=== PATIENT | male | born 1960 | race Caucasian/White ===

== ENCOUNTER 2017-10-13 07:18 | Day surgery (SDC) | payer BC ==
[~2017-10-13 07:18] MED LIST: Lactated Ringers 1,000 ML IV SCH; Sodium Chloride 0.9% 10 ML Syringe FLUSH PRN
[2017-10-13] MEDS ORDERED: Propofol 200 MG/20 ML SDV IV ONE (08:30)
[2017-10-13] MEDS ORDERED: fentaNYL 100 MCG/2 ML SDV IV ONE (08:30)
[2017-10-13] MEDS ORDERED: Midazolam 1 MG/ML 2 ML SDV IV ONE (08:30)
--- NOTE | 2017-10-13 09:14 | PCM.OPNOTE ---
- General Post-Op/Procedure Note Date of Surgery/Procedure: 10/13/17 Operative Procedure(s): egd with bx. c scope with bx Findings: esophagitis paraesophageal hernia internal hemorrhoids descending colon polyp Pre Op Diagnosis: epigastrit abd pain. hematochezia Post-Op Diagnosis: esophagitis. paraesophageal hernia. internal hemorrhoids. descending colon polyp Anesthesia Technique: MAC Primary Surgeon: Adolfo Medina Anesthesia Provider: Sony Delacruz Pathology: esophagus descending colon polyp Complications: None Condition: Good Free Text/Narrative:: see dictation
--- NOTE | 2017-10-13 13:45 | OR ---
DATE OF OPERATION: 10/13/2017 SURGEON: Adolfo Medina MD PROCEDURE PERFORMED: Upper endoscopy with cold forceps biopsy and colonoscopy with cold forceps biopsy. PREOPERATIVE DIAGNOSIS: Epigastric abdominal pain and hematochezia. POSTOPERATIVE DIAGNOSIS: Esophagitis, paraesophageal hernia and descending colon polyp, internal polyps. INDICATIONS FOR PROCEDURE: This is a 57-year-old white male, who is referred with a history of epigastric abdominal discomfort. In addition, he relates some hematochezia. He was offered and accepted both an upper endoscopy and a colonoscopy. DESCRIPTION OF PROCEDURE: After an excellent IV sedation was administered, the bite block was inserted. The flexible endoscope was passed without difficulty down the patient's esophagus into the stomach. The following findings were noted: Ability to pass the endoscope into the duodenum was not possible. This was because a portion of the stomach appeared to be in the chest. We were able to pass the tube through the diaphragmatic opening and see the remainder of the stomach, but because of the sharp angle involved to get through the pylorus, we were unable to do so. There was no evidence of gangrene or necrosis noted. The patient does not appear to be obstructed. Withdrawing the scope to the GE junction, which measured at 35 cm, there was evidence of esophagitis and biopsies were taken. The remainder of the esophageal exam was unremarkable. The stomach was deflated and the scope was removed. Our attention was then turned to the patient's colon. Digital rectal exam was performed. No marked abnormality was noted. Flexible colonoscope was inserted and advanced to the cecum without difficulty. The prep was excellent. The following findings were noted: Ascending colon, unremarkable. Transverse colon, unremarkable. Descending colon demonstrates a small polypoid lesion, biopsied with cold biopsy forceps and sent for permanent. Sigmoid and rectum, unremarkable. There was evidence of internal hemorrhoids, which appeared to be the reason why the patient has had some hematochezia. The colon was deflated, scope was removed, and the patient tolerated the procedure well, and was taken to recovery room in good condition. /[id number] /MODL
== END 2017-10-13 10:45 | disposition home or self-care (01) ==
LOC: FB.SDS 07:18
PROVIDERS: ATTEND Surgery
DX: K63.5 Polyp of colon (principal); K21.0 Gastro-esophageal reflux disease with esophagitis; K64.8 Other hemorrhoids; Z79.899 Other long term (current) drug therapy
CPT/HCPCS: 43239; 45380; 88305; 88313; J2250; J2704; J3010; J7120

== ENCOUNTER 2017-11-05 08:13 | Inpatient (IN) | payer BC ==
[2017-11-05] MEDS ORDERED: ceFAZolin 1 GM Vial IV ONE (09:30)
[2017-11-05] MEDS ORDERED: ceFAZolin 1 GM in Sodium Chloride 0.9% 50 ML IV ONE (09:30)
[2017-11-05] MEDS: Lactated Ringers 1,000 ML IV SCH ×3 (09:32→20:00)
[2017-11-05] MEDS ORDERED: Lidocaine 1% with EPINEPHrine 1:100,000 20 ML MDV INJECT ONE (10:33)
[2017-11-05] MEDS ORDERED: Bupivacaine 0.5% 30 ML SDV INJECT ONE (10:33)
--- NOTE | 2017-11-05 13:18 | PCM.OPNOTE ---
- General Post-Op/Procedure Note Date of Surgery/Procedure: 11/05/17 Operative Procedure(s): lap paraesophageal hernia repair with mesh. Greg fundoplication Findings: type 3 paraesophageal hernia. reduced with 4 cm of esophagus, ge junction in the abdomen Pre Op Diagnosis: paraesophageal hernia Post-Op Diagnosis: type 3 paraesophageal hernia. Anesthesia Technique: MAC Primary Surgeon: Adolfo Medina Anesthesia Provider: Ros Sow Pathology: hernia sac Complications: None Condition: Good Free Text/Narrative:: see dictation
[2017-11-05] MEDS: Metoclopramide 10 MG/2 ML SDV IVPUSH SCH ×2 (14:09→21:22)
[2017-11-05] MEDS: Pantoprazole 40 MG Vial IVPUSH SCH (14:12)
[2017-11-05] MEDS: HYDROmorphone 2 MG/ML SDV IVPUSH PRN (15:36)
[2017-11-05] MEDS: Acetaminophen 1,000 MG in Premix Bag 1 BAG IV SCH ×2 (17:05→23:25)
[2017-11-05] MEDS ORDERED: Ondansetron 4 MG/2 ML SDV IVPUSH PRN (18:00)
--- NOTE | 2017-11-05 18:10 | PCM.SN ---
- Free Text/Narrative Note: good pain control no sig issues. lungs cta heart rrr abd soft nontender unremarkable post op exam
--- NOTE | 2017-11-05 20:25 | OR ---
DATE OF OPERATION: 11/05/2017 SURGEON: Adolfo Medina MD PREOPERATIVE DIAGNOSIS: Paraesophageal hernia. POSTOPERATIVE DIAGNOSIS: Type 3 paraesophageal hernia. PROCEDURE PERFORMED: Laparoscopic paraesophageal hernia repair with mesh and Dami fundoplication. INDICATIONS FOR PROCEDURE: This is a 57-year-old white male, who is referred with a history of complaints of early satiety and vomiting. Subsequent workup has revealed a paraesophageal hernia. He was offered and accepted repair of same. DESCRIPTION OF OPERATION: After an excellent general anesthetic was administered, a Krishna catheter was placed. The patient was prepped and draped in the usual sterile manner. We began the case by injecting the area just below the umbilicus with a 1:1 mixture of 1% lidocaine with epinephrine 0.5% bupivacaine. A total of 5 mL was used. A small vertical midline incision was carried out and the midline fascia was exposed. Two stay sutures of 0 Vicryl were placed on either side of midline fascia, which was then incised. A 10.5 mm Claudia trocar was then inserted into the patient's abdominal cavity and the patient's abdomen was then insufflated to 50 mmHg pressure using carbon dioxide. A total of four more ports were placed at this point, one in the right upper quadrant at the proximal level of the midclavicular or the anterior axillary line, two in the epigastrium on either side of the midline, and one in the left upper quadrant approximate level of the midclavicular line. The liver retractor was then inserted and clamped into position. The stomach was grasped and reduced. We started the case by using the LigaSure and started taking down the short gastrics. This allowed our dissection to be carried up to the left asuncion and the plane was developed along the left asuncion anterior using the LigaSure. Grasping the hernia sac, we were then able to carefully using a combination of LigaSure and blunt dissection, dissect the hernia sac free from the mediastinum and reduced that into the intraabdominal cavity circulating around approximately group home across the midline of the anterior portion of the asuncion. We then took down the gastrohepatic ligament again using a LigaSure and mobilized the hernia sac of the right side again dissecting it free and reducing it completely. The excess hernia sac was then excised and passed off the field. Our plane was developed posteriorly taking down more adhesions and using gentle blunt dissection. The esophagus was mobilized and brought into the intraabdominal portion. A 1-inch Martha drain was then wrapped around the hernia sac and kept into position with a LigaSure. This allowed us to retract the stomach out of the way and proceed with our closure with a 2-0 Ethibond on a canoe needle. A total of 3 stitches were placed through both asuncion without difficulty and the knots were tied extracorporeally. The 3rd knot was tied after inserting and inflating a bougie, which was dilated up to 56-Tamazight. We then took off some additional fat from around the GE junction. The GE junction measured approximately 4 cm into the intraabdominal cavity. We were able to grasp the posterior aspect of the stomach and bring around the fundus to perform a Dami fundoplication and again the stomach was quite lax and remained in position using the shoe-shine technique. Two sutures were placed, one involving the fundus, esophagus, and stomach superiorly and one inferiorly just below the GE junction again using the 3-0 Ethibond suture. The Chiqui was removed at the start of the fundoplication. The balloon dilator was removed after completing our fundoplication and a nice loose wrap was noted again with the GE junction noted to be very nicely in the intraabdominal position as well. It should be noted that the crural repair was reinforced with a Phasix ST mesh. This was an [id number] an expiration date of 02/28/2015, reference #[id number] and this was the 3 x 4 size. A horseshoe shape was cut into the mesh along its long axis approximately 3 cm and this portion of the repair was done prior to our fundoplication with the barrier portion of the mesh marked and after soaking the mesh delivered through the umbilical port and brought back to the crural itself where the mesh was placed over the repair with two tails coming superiorly. These were tacked into position with the Stat Tacker. A total of 5 were used to keep it into position. The excess mesh on the tail was excised leaving a horseshoe shape to the mesh and was noted this was done between the fundoplication at the end of closing our crura. The pneumoperitoneum was released after assuring our wrap was quite loose. The periumbilical suture was closed with [id number] 0 Vicryl. The 2 stay sutures were tied to each other. The skin was closed with soha. Needle, sponge, and instrument counts were reported as correct. The patient was taken to recovery room in good condition having tolerated the procedure well. Krishna catheter was removed in the recovery room. /[id number] /MODL
[2017-11-06] MEDS: Lactated Ringers 1,000 ML IV SCH (04:20)
[2017-11-06] MEDS: Acetaminophen 1,000 MG in Premix Bag 1 BAG IV SCH ×2 (04:23→11:40)
[2017-11-06] MEDS: Metoclopramide 10 MG/2 ML SDV IVPUSH SCH ×2 (04:57→13:51)
[2017-11-06] MEDS: Pantoprazole 40 MG Vial IVPUSH SCH (09:14)
[2017-11-06] MEDS: HYDROmorphone 2 MG/ML SDV IVPUSH PRN (09:14)
[2017-11-06] MEDS ORDERED: traMADol 50 MG Tab PO PRN (09:43)
--- NOTE | 2017-11-06 09:46 | PCM.SURGPN ---
- General Info Date of Service: 11/06/17 POD#: 1 Functional Status: Reports: Pain Controlled, Ambulating, Urinating, Incentive Spirometry - Review of Systems Pulmonary: Reports: No Symptoms Cardiovascular: Reports: No Symptoms Gastrointestinal: Reports: Abdominal Pain - Patient Data Vitals - Most Recent: Last Vital Signs Temp 36.9 C 11/06/17 07:48 Pulse 60 11/06/17 07:48 Resp 17 11/06/17 07:48 BP 119/66 11/06/17 07:48 Pulse Ox 98 11/06/17 07:48 Weight - Most Recent: 72.575 kg I&O - Last 24 Hours: Intake & Output 11/05/17 11/06/17 11/06/17 22:59 06:59 14:59 Intake Total 1028 1175 Output Total 0 400 125 Balance 1028 775 -125 Lab Results Last 24 Hrs: Laboratory Results - last 24 hr 11/06/17 Range/Units 06:25 WBC 10.2 (4.5-12.0) X10-3/uL RBC 4.49 (4.30-5.75) x10(6)uL Hgb 12.4 (11.5-15.5) g/dL Hct 37.0 (30.0-51.3) % MCV 82.5 (80-96) fL MCH 27.7 (27.7-33.6) pg MCHC 33.6 (32.2-35.4) g/dL RDW 13.6 (11.5-15.5) % Plt Count 277 (125-369) X10(3)uL MPV 9.1 (7.4-10.4) fL Neut % (Auto) 81.6 (46-82) % Lymph % (Auto) 9.2 L (13-37) % [place]ham % (Auto) 8.8 (4-12) % Eos % (Auto) 0 L (1.0-5.0) % Baso % (Auto) 0 (0-2) % Neut # (Auto) 8.4 H (1.6-8.3) # Lymph # (Auto) 0.9 (0.6-5.0) # [place]ham # (Auto) 0.9 (0.0-1.3) # Eos # (Auto) 0.0 (0.0-0.8) # Baso # (Auto) 0.0 (0.0-0.2) # Med Orders - Current: Current Medications Hydromorphone HCl (Dilaudid) 1 mg IVPUSH Q2H PRN PRN Reason: Pain (moderate 4-6) Last Admin: 11/06/17 09:14 Dose: 1 mg Lactated Ringer's (Ringers, Lactated) 1,000 mls @ 125 mls/hr IV ASDIRECTED [facility] Last Admin: 11/06/17 04:20 Dose: 125 mls/hr Acetaminophen 1,000 mg/ Premix 100 mls @ 400 mls/hr IV Q6H [facility] Stop: 11/06/17 11:14 Last Admin: 11/06/17 04:23 Dose: 400 mls/hr Metoclopramide HCl (Reglan) 5 mg IVPUSH Q8H [facility] Last Admin: 11/06/17 04:57 Dose: 5 mg Ondansetron HCl (Zofran) 4 mg IVPUSH Q6H PRN PRN Reason: Nausea/Vomiting Last Admin: 11/05/17 17:26 Dose: 4 mg Pantoprazole Sodium (Protonix Iv) 40 mg IVPUSH DAILY [facility] Last Admin: 11/06/17 09:14 Dose: 40 mg Sodium Chloride (Saline Flush) 10 ml FLUSH ASDIRECTED PRN PRN Reason: Keep Vein Open Discontinued Medications Bupivacaine HCl (Marcaine 0.5%) 10 ml INJECT .STK-MED ONE Stop: 11/05/17 10:34 Last Admin: 11/05/17 10:33 Dose: 10 ml Cefazolin Sodium (Ancef) 1 gm IV ONETIME ONE Stop: 11/05/17 09:31 Last Admin: 11/05/17 09:50 Dose: 1 gm Lidocaine/Epinephrine (Xylocaine 1% With Epinephrine 1:100,000) 10 ml INJECT .STK-MED ONE Stop: 11/05/17 10:34 Last Admin: 11/05/17 10:33 Dose: 10 ml - Exam Wound/Incisions: Dressing Dry and Intact General: Alert, Oriented, No Acute Distress Lungs: Clear to Auscultation, Normal Respiratory Effort Cardiovascular: Regular Rate, Regular Rhythm GI/Abdominal Exam: Normal Bowel Sounds, Soft, Non-Tender - Problem List & Annotations (1) Paraesophageal hernia SNOMED Code(s): 0091113 Code(s): K44.9 - DIAPHRAGMATIC HERNIA WITHOUT OBSTRUCTION OR GANGRENE Status: Acute Current Visit: No - Problem List Review Problem List Initiated/Reviewed/Updated: Yes - My Orders Last 24 Hours: Active Orders 24 hr Category Date Time Status Ambulate [RC] 08,12,16,20,00,04 Care 11/05/17 13:18 Active Communication Order [RC] ROUTINE Care 11/06/17 09:44 Ordered Insert Urinary Catheter [OM.PC] Q24H Care 11/06/17 01:00 Ordered Intake and Output [RC] 06,14,22 Care 11/05/17 13:18 Active Notify Provider Intake and Out [RC] PRN Care 11/05/17 13:19 Active Notify Provider Vital Signs [RC] PRN Care 11/05/17 13:19 Active Oxygen Therapy [RC] PRN Care 11/05/17 13:18 Active RT Incentive Spirometry [RC] Q2HWA Care 11/05/17 13:18 Active Vital Signs [RC] 04,08,12,16,20,00 Care 11/05/17 13:18 Active Respiratory Care Assess and Treatment [CONS] Routine Cons 11/05/17 13:18 Active Clear Liquid Diet [DIET] Diet 11/06/17 Lunch Ordered Acetaminophen [Ofirmev] 1,000 mg Med 11/05/17 17:00 Active Premix Bag 1 bag IV Q6H HYDROmorphone [Dilaudid] Med 11/05/17 13:18 Active 1 mg IVPUSH Q2H PRN Metoclopramide [Reglan] Med 11/05/17 13:30 Active 5 mg IVPUSH Q8H Ondansetron [Zofran] Med 11/05/17 18:00 Active 4 mg IVPUSH Q6H PRN Pantoprazole [ProTONIX IV] Med 11/05/17 13:30 Active 40 mg IVPUSH DAILY traMADol [Ultram] Med 11/06/17 09:43 Ordered 100 mg PO Q6H PRN Medication Orders Hydromorphone HCl (Dilaudid) 1 mg IVPUSH Q2H PRN PRN Reason: Pain (moderate 4-6) Last Admin: 11/06/17 09:14 Dose: 1 mg Admin: 11/05/17 15:36 Dose: 1 mg Lactated Ringer's (Ringers, Lactated) 1,000 mls @ 125 mls/hr IV ASDIRECTED [facility] Last Admin: 11/06/17 04:20 Dose: 125 mls/hr Infusion: 11/06/17 04:00 Dose: 125 mls/hr Admin: 11/05/17 20:00 Dose: 125 mls/hr Infusion: 11/05/17 19:55 Dose: 125 mls/hr Admin: 11/05/17 13:42 Dose: 125 mls/hr Infusion: 11/05/17 13:42 Dose: 125 mls/hr Admin: 11/05/17 09:32 Dose: 125 mls/hr Acetaminophen 1,000 mg/ Premix 100 mls @ 400 mls/hr IV Q6H [facility] Stop: 11/06/17 11:14 Last Admin: 11/06/17 04:23 Dose: 400 mls/hr Infusion: 11/05/17 23:40 Dose: 400 mls/hr Admin: 11/05/17 23:25 Dose: 400 mls/hr Infusion: 11/05/17 17:20 Dose: 400 mls/hr Admin: 11/05/17 17:05 Dose: 400 mls/hr Metoclopramide HCl (Reglan) 5 mg IVPUSH Q8H [facility] Last Admin: 11/06/17 04:57 Dose: 5 mg Admin: 11/05/17 21:22 Dose: 5 mg Admin: 11/05/17 14:09 Dose: 5 mg Ondansetron HCl (Zofran) 4 mg IVPUSH Q6H PRN PRN Reason: Nausea/Vomiting Last Admin: 11/05/17 17:26 Dose: 4 mg Pantoprazole Sodium (Protonix Iv) 40 mg IVPUSH DAILY [facility] Last Admin: 11/06/17 09:14 Dose: 40 mg Admin: 11/05/17 14:12 Dose: 40 mg Sodium Chloride (Saline Flush) 10 ml FLUSH ASDIRECTED PRN PRN Reason: Keep Vein Open - Assessment Assessment (Free Text/Narrative):: doing well today - Plan Plan (Free Text/Narrative):: clear liquid diet po pain medication
[2017-11-06] MEDS ORDERED: Dexamethasone 4 MG/ML 5 ML MDV IVPUSH ONE (10:00)
[2017-11-06] MEDS ORDERED: Lactated Ringers 1,000 ML IV ONE (10:00)
[2017-11-06] MEDS ORDERED: Neostigmine Methylsulfate 10 MG/10 ML MDV IVPUSH ONE (10:00)
[2017-11-06] MEDS ORDERED: Ondansetron 4 MG/2 ML SDV IVPUSH ONE (10:00)
[2017-11-06] MEDS ORDERED: HYDROmorphone 2 MG/ML SDV IV ONE (10:00)
[2017-11-06] MEDS ORDERED: fentaNYL 100 MCG/2 ML SDV IV ONE (10:00)
[2017-11-06] MEDS ORDERED: Glycopyrrolate 0.2 MG/ML 5 ML MDV IV ONE (10:00)
[2017-11-06] MEDS ORDERED: Ketorolac 30 MG/ML SDV IVPUSH ONE (10:00)
[2017-11-06] MEDS ORDERED: Succinylcholine 200 MG/10 ML MDV IV ONE (10:00)
[2017-11-06] MEDS ORDERED: Rocuronium 100 MG/10 ML MDV IV ONE (10:00)
[2017-11-06] MEDS ORDERED: Sodium Chloride 0.9% 500 ML IV ONE (10:00)
[2017-11-06] MEDS ORDERED: Lidocaine 2% 100 MG/5 ML Syringe IVPUSH ONE (10:00)
[2017-11-06] MEDS ORDERED: Propofol 200 MG/20 ML SDV IV ONE (10:00)
[2017-11-06] MEDS: Sodium Chloride 0.9% 10 ML Syringe FLUSH PRN (13:52)
[2017-11-06] MEDS: traMADol 50 MG Tab PO PRN ×2 (17:52→22:04)
[2017-11-07] MEDS: Sodium Chloride 0.9% 10 ML Syringe FLUSH PRN ×2 (00:03→05:22)
[2017-11-07] MEDS: Metoclopramide 10 MG/2 ML SDV IVPUSH SCH ×3 (00:05→19:07)
[2017-11-07] MEDS: traMADol 50 MG Tab PO PRN (03:40)
[2017-11-07] MEDS ORDERED: Enoxaparin 40 MG/0.4 ML Syringe SUBCUT SCH (09:00)
[2017-11-07] MEDS ORDERED: Bisacodyl 5 MG Tab PO ONE (09:05)
--- NOTE | 2017-11-07 09:09 | PCM.SURGPN ---
- General Info Date of Service: 11/07/17 POD#: 2 - Review of Systems Gastrointestinal: Reports: Other (distention ). Denies: Flatus - Patient Data Vitals - Most Recent: Last Vital Signs Temp 36.5 C 11/07/17 03:40 Pulse 71 11/07/17 03:40 Resp 18 11/07/17 03:40 BP 129/87 11/07/17 03:40 Pulse Ox 94 L 11/07/17 03:40 Weight - Most Recent: 72.575 kg I&O - Last 24 Hours: Intake & Output 11/06/17 11/07/17 11/07/17 22:59 06:59 14:59 Intake Total 775 200 Output Total 600 250 Balance 175 -50 Med Orders - Current: Current Medications Bisacodyl (Dulcolax) 10 mg PO ONETIME ONE Stop: 11/07/17 09:06 Hydromorphone HCl (Dilaudid) 1 mg IVPUSH Q2H PRN PRN Reason: Pain (moderate 4-6) Last Admin: 11/06/17 09:14 Dose: 1 mg Potassium Chloride/Dextrose/Sod Cl (D5 1/2 Ns W/ 20 Meq/L Kcl) 1,000 mls @ 125 mls/hr IV ASDIRECTED [facility] Metoclopramide HCl (Reglan) 10 mg IVPUSH Q8H [facility] Ondansetron HCl (Zofran) 4 mg IVPUSH Q6H PRN PRN Reason: Nausea/Vomiting Last Admin: 11/05/17 17:26 Dose: 4 mg Pantoprazole Sodium (Protonix Iv) 40 mg IVPUSH DAILY [facility] Last Admin: 11/06/17 09:14 Dose: 40 mg Sodium Chloride (Saline Flush) 10 ml FLUSH ASDIRECTED PRN PRN Reason: Keep Vein Open Last Admin: 11/07/17 05:22 Dose: 10 ml Tramadol HCl (Ultram) 100 mg PO Q4H PRN PRN Reason: Pain Last Admin: 11/07/17 03:40 Dose: 100 mg Discontinued Medications Bupivacaine HCl (Marcaine 0.5%) 10 ml INJECT .STK-MED ONE Stop: 11/05/17 10:34 Last Admin: 11/05/17 10:33 Dose: 10 ml Cefazolin Sodium (Ancef) 1 gm IV ONETIME ONE Stop: 11/05/17 09:31 Last Admin: 11/05/17 09:50 Dose: 1 gm Lactated Ringer's (Ringers, Lactated) 1,000 mls @ 125 mls/hr IV ASDIRECTED [facility] Last Admin: 11/06/17 04:20 Dose: 125 mls/hr Acetaminophen 1,000 mg/ Premix 100 mls @ 400 mls/hr IV Q6H [facility] Stop: 11/06/17 11:14 Last Admin: 11/06/17 11:40 Dose: 400 mls/hr Lidocaine/Epinephrine (Xylocaine 1% With Epinephrine 1:100,000) 10 ml INJECT .STK-MED ONE Stop: 11/05/17 10:34 Last Admin: 11/05/17 10:33 Dose: 10 ml Metoclopramide HCl (Reglan) 5 mg IVPUSH Q8H [facility] Last Admin: 11/07/17 05:21 Dose: 5 mg Tramadol HCl (Ultram) 100 mg PO Q6H PRN PRN Reason: Pain Last Admin: 11/06/17 13:51 Dose: 100 mg - Exam Wound/Incisions: Healing Well Lungs: Clear to Auscultation, Normal Respiratory Effort Cardiovascular: Regular Rate, Regular Rhythm GI/Abdominal Exam: Normal Bowel Sounds, Distended Skin: Warm, Dry, Intact - Problem List & Annotations (1) Paraesophageal hernia SNOMED Code(s): 8357962 Code(s): K44.9 - DIAPHRAGMATIC HERNIA WITHOUT OBSTRUCTION OR GANGRENE Status: Acute Current Visit: No - Problem List Review Problem List Initiated/Reviewed/Updated: Yes - My Orders Last 24 Hours: Active Orders 24 hr Category Date Time Status Communication Order [RC] ROUTINE Care 11/06/17 09:44 Active Krishna Catheter Insertion [Insert Urinary Catheter] [OM. Care 11/06/17 11:15 Ordered PC] Q24H Urinary Catheter Assessment [RC] 08,16,00 Care 11/06/17 11:13 Active BASIC METABOLIC PANEL,BMP [CHEM] Routine Lab 11/07/17 09:06 Ordered Bisacodyl [Dulcolax] Med 11/07/17 09:05 Once 10 mg PO ONETIME ONE Dextrose 5%-1/2 Normal Saline with KCl 20 mEq @ 125 mL/ Med 11/07/17 09:15 Ordered Hr (1000 mL) D5 1/2 NS w/ 20 mEq/L KCl 1,000 ml IV ASDIRECTED Metoclopramide [Reglan] Med 11/07/17 09:06 Ordered 10 mg IVPUSH Q8H traMADol [Ultram] Med 11/06/17 17:39 Active 100 mg PO Q4H PRN Medication Orders Bisacodyl (Dulcolax) 10 mg PO ONETIME ONE Stop: 11/07/17 09:06 Hydromorphone HCl (Dilaudid) 1 mg IVPUSH Q2H PRN PRN Reason: Pain (moderate 4-6) Last Admin: 11/06/17 09:14 Dose: 1 mg Admin: 11/05/17 15:36 Dose: 1 mg Potassium Chloride/Dextrose/Sod Cl (D5 1/2 Ns W/ 20 Meq/L Kcl) 1,000 mls @ 125 mls/hr IV ASDIRECTED [facility] Metoclopramide HCl (Reglan) 10 mg IVPUSH Q8H [facility] Ondansetron HCl (Zofran) 4 mg IVPUSH Q6H PRN PRN Reason: Nausea/Vomiting Last Admin: 11/05/17 17:26 Dose: 4 mg Pantoprazole Sodium (Protonix Iv) 40 mg IVPUSH DAILY [facility] Last Admin: 11/06/17 09:14 Dose: 40 mg Admin: 11/05/17 14:12 Dose: 40 mg Sodium Chloride (Saline Flush) 10 ml FLUSH ASDIRECTED PRN PRN Reason: Keep Vein Open Last Admin: 11/07/17 05:22 Dose: 10 ml Admin: 11/07/17 00:03 Dose: 10 ml Admin: 11/06/17 13:52 Dose: 10 ml Tramadol HCl (Ultram) 100 mg PO Q4H PRN PRN Reason: Pain Last Admin: 11/07/17 03:40 Dose: 100 mg Admin: 11/06/17 22:04 Dose: 100 mg Admin: 11/06/17 17:52 Dose: 100 mg - Assessment Assessment (Free Text/Narrative):: appears to have delayed gastric emptying - Plan Plan (Free Text/Narrative):: npo continue reglan at higher dose dulcolax suppository.
[2017-11-07] MEDS: D5 1/2 NS w/ 20 mEq/L KCl 1,000 ML IV SCH ×2 (09:46→19:07)
[2017-11-07] MEDS: Pantoprazole 40 MG Vial IVPUSH SCH (09:51)
[2017-11-07] MEDS: Ketorolac 30 MG/ML SDV IVPUSH PRN ×2 (10:12→17:01)
[2017-11-07] MEDS ORDERED: Metoclopramide 10 MG/2 ML SDV IVPUSH SCH (11:00)
[2017-11-07] MEDS ORDERED: Ketorolac 30 MG/ML SDV ONE (16:37)
[2017-11-07] MEDS ORDERED: HYDROmorphone 2 MG/ML SDV IVPUSH PRN (17:05)
[2017-11-07] MEDS ORDERED: Ondansetron 4 MG/2 ML SDV IVPUSH PRN (17:06)
[2017-11-08] MEDS: Ketorolac 30 MG/ML SDV IVPUSH PRN ×3 (00:33→15:37)
[2017-11-08] MEDS: Metoclopramide 10 MG/2 ML SDV IVPUSH SCH ×3 (03:50→19:00)
[2017-11-08] MEDS: D5 1/2 NS w/ 20 mEq/L KCl 1,000 ML IV SCH ×2 (08:31→21:53)
--- NOTE | 2017-11-08 08:48 | PCM.SURGPN ---
- General Info Date of Service: 11/08/17 POD#: 3 Functional Status: Reports: Ambulating, Urinating - Review of Systems HEENT: Reports: Sore Throat (from NGT ) Pulmonary: Reports: No Symptoms Cardiovascular: Reports: No Symptoms Gastrointestinal: Reports: Flatus, Other (abd distention is down). Denies: Abdominal Pain - Patient Data Vitals - Most Recent: Last Vital Signs Temp 36.7 C 11/08/17 03:54 Pulse 70 11/08/17 03:54 Resp 16 11/08/17 03:54 BP 155/95 H 11/08/17 03:54 Pulse Ox 95 11/08/17 03:54 Weight - Most Recent: 72.575 kg I&O - Last 24 Hours: Intake & Output 11/07/17 11/08/17 11/08/17 22:59 06:59 14:59 Intake Total 775 575 Output Total 800 1550 Balance -25 -975 Lab Results Last 24 Hrs: Laboratory Results - last 24 hr 11/07/17 Range/Units 09:15 Sodium 139 (135-145) mmol/L Potassium 3.8 (3.5-5.3) mmol/L Chloride 103 (100-110) mmol/L Carbon Dioxide 29 (21-32) mmol/L BUN 12 (7-18) mg/dL Creatinine 1.1 (0.70-1.30) mg/dL Est Cr Clr Drug Dosing 73.49 mL/min Estimated GFR (MDRD) > 60 (>60) BUN/Creatinine Ratio 10.9 (9-20) Glucose 96 (80-116) mg/dL Calcium 8.7 (8.6-10.2) mg/dL Med Orders - Current: Current Medications Enoxaparin Sodium (Lovenox) 40 mg SUBCUT DAILY [facility] Hydromorphone HCl (Dilaudid) 1 mg IVPUSH Q2H PRN PRN Reason: Pain (moderate 4-6) Potassium Chloride/Dextrose/Sod Cl (D5 1/2 Ns W/ 20 Meq/L Kcl) 1,000 mls @ 75 mls/hr IV Q8H [facility] Last Admin: 11/08/17 08:31 Dose: 125 mls/hr Ketorolac Tromethamine (Toradol) 30 mg IVPUSH Q6H PRN PRN Reason: Pain Stop: 11/12/17 09:09 Last Admin: 11/08/17 00:33 Dose: 30 mg Metoclopramide HCl (Reglan) 10 mg IVPUSH Q8H [facility] Last Admin: 11/08/17 03:50 Dose: 10 mg Ondansetron HCl (Zofran) 4 mg IVPUSH Q6H PRN PRN Reason: Nausea/Vomiting Pantoprazole Sodium (Protonix Iv) 40 mg IVPUSH DAILY [facility] Sodium Chloride (Saline Flush) 10 ml FLUSH ASDIRECTED PRN PRN Reason: Keep Vein Open Last Admin: 11/07/17 05:22 Dose: 10 ml Discontinued Medications Bisacodyl (Dulcolax) 10 mg PO ONETIME ONE Stop: 11/07/17 09:06 Last Admin: 11/07/17 09:47 Dose: 10 mg Bupivacaine HCl (Marcaine 0.5%) 10 ml INJECT .STK-MED ONE Stop: 11/05/17 10:34 Last Admin: 11/05/17 10:33 Dose: 10 ml Cefazolin Sodium (Ancef) 1 gm IV ONETIME ONE Stop: 11/05/17 09:31 Last Admin: 11/05/17 09:50 Dose: 1 gm Enoxaparin Sodium (Lovenox) 40 mg SUBCUT DAILY [facility] Last Admin: 11/07/17 10:27 Dose: 40 mg Hydromorphone HCl (Dilaudid) 1 mg IVPUSH Q2H PRN PRN Reason: Pain (moderate 4-6) Last Admin: 11/06/17 09:14 Dose: 1 mg Lactated Ringer's (Ringers, Lactated) 1,000 mls @ 125 mls/hr IV ASDIRECTED [facility] Last Admin: 11/06/17 04:20 Dose: 125 mls/hr Acetaminophen 1,000 mg/ Premix 100 mls @ 400 mls/hr IV Q6H [facility] Stop: 11/06/17 11:14 Last Admin: 11/06/17 11:40 Dose: 400 mls/hr Ketorolac Tromethamine (Toradol) 30 mg IVPUSH Q6H PRN PRN Reason: Pain Stop: 11/12/17 09:09 Last Admin: 11/07/17 17:01 Dose: 30 mg Ketorolac Tromethamine (Toradol) Confirm Administered Dose 30 mg .ROUTE .STK- MED ONE Stop: 11/07/17 16:38 Last Admin: 11/07/17 18:11 Dose: Not Given Lidocaine/Epinephrine (Xylocaine 1% With Epinephrine 1:100,000) 10 ml INJECT .STK-MED ONE Stop: 11/05/17 10:34 Last Admin: 11/05/17 10:33 Dose: 10 ml Metoclopramide HCl (Reglan) 5 mg IVPUSH Q8H [facility] Last Admin: 11/07/17 05:21 Dose: 5 mg Metoclopramide HCl (Reglan) 10 mg IVPUSH Q8H [facility] Last Admin: 11/07/17 10:17 Dose: 10 mg Ondansetron HCl (Zofran) 4 mg IVPUSH Q6H PRN PRN Reason: Nausea/Vomiting Last Admin: 11/05/17 17:26 Dose: 4 mg Pantoprazole Sodium (Protonix Iv) 40 mg IVPUSH DAILY [facility] Last Admin: 11/07/17 09:51 Dose: 40 mg Tramadol HCl (Ultram) 100 mg PO Q6H PRN PRN Reason: Pain Last Admin: 11/06/17 13:51 Dose: 100 mg Tramadol HCl (Ultram) 100 mg PO Q4H PRN PRN Reason: Pain Last Admin: 11/07/17 03:40 Dose: 100 mg - Exam Wound/Incisions: Healing Well General: Alert, Oriented, No Acute Distress Lungs: Clear to Auscultation, Normal Respiratory Effort Cardiovascular: Regular Rate, Regular Rhythm GI/Abdominal Exam: Soft, Non-Tender, No Distention, Abnormal Bowel Sounds ( slightly decreased ) - Problem List & Annotations (1) Paraesophageal hernia SNOMED Code(s): 0523032 Code(s): K44.9 - DIAPHRAGMATIC HERNIA WITHOUT OBSTRUCTION OR GANGRENE Status: Acute Current Visit: No - Problem List Review Problem List Initiated/Reviewed/Updated: Yes - My Orders Last 24 Hours: Active Orders 24 hr Category Date Time Status DC Coultre Catheter [Urinary Catheter Removal] [RC] Per Care 11/08/17 08:44 Ordered Unit Routine NPO [Nothing Per Oral Diet] [DIET] Diet 11/08/17 Breakfast Active D5 1/2 NS w/ 20 mEq/L KCl 1,000 ml Med 11/07/17 09:15 Active IV Q8H Enoxaparin [Lovenox] Med 11/08/17 09:00 Active 40 mg SUBCUT DAILY HYDROmorphone [Dilaudid] Med 11/07/17 17:05 Active 1 mg IVPUSH Q2H PRN Ketorolac [Toradol] Med 11/07/17 22:00 Active 30 mg IVPUSH Q6H PRN Metoclopramide [Reglan] Med 11/07/17 19:00 Active 10 mg IVPUSH Q8H Ondansetron [Zofran] Med 11/07/17 17:06 Active 4 mg IVPUSH Q6H PRN Pantoprazole [ProTONIX IV] Med 11/08/17 09:00 Active 40 mg IVPUSH DAILY NG [Nasogastric Orogastric Tube Insertion] [OM.PC] Oth 11/07/17 15:30 Ordered Routine Medication Orders Enoxaparin Sodium (Lovenox) 40 mg SUBCUT DAILY [facility] Hydromorphone HCl (Dilaudid) 1 mg IVPUSH Q2H PRN PRN Reason: Pain (moderate 4-6) Potassium Chloride/Dextrose/Sod Cl (D5 1/2 Ns W/ 20 Meq/L Kcl) 1,000 mls @ 75 mls/hr IV Q8H [facility] Last Admin: 11/08/17 08:31 Dose: 125 mls/hr Infusion: 11/08/17 03:07 Dose: 125 mls/hr Admin: 11/07/17 19:07 Dose: 125 mls/hr Infusion: 11/07/17 17:46 Dose: 125 mls/hr Admin: 11/07/17 09:46 Dose: 125 mls/hr Ketorolac Tromethamine (Toradol) 30 mg IVPUSH Q6H PRN PRN Reason: Pain Stop: 11/12/17 09:09 Last Admin: 11/08/17 00:33 Dose: 30 mg Metoclopramide HCl (Reglan) 10 mg IVPUSH Q8H [facility] Last Admin: 11/08/17 03:50 Dose: 10 mg Admin: 11/07/17 19:07 Dose: 10 mg Ondansetron HCl (Zofran) 4 mg IVPUSH Q6H PRN PRN Reason: Nausea/Vomiting Pantoprazole Sodium (Protonix Iv) 40 mg IVPUSH DAILY [facility] Sodium Chloride (Saline Flush) 10 ml FLUSH ASDIRECTED PRN PRN Reason: Keep Vein Open Last Admin: 11/07/17 05:22 Dose: 10 ml Admin: 11/07/17 00:03 Dose: 10 ml Admin: 11/06/17 13:52 Dose: 10 ml - Assessment Assessment (Free Text/Narrative):: exam is better today mobilizing fluids with a good uo minimal NGT output with distention resolved. slightly hypoactive bowel sounds. - Plan Plan (Free Text/Narrative):: coulter out today. anticipate d/c of ngt later today. continue reglan
[2017-11-08] MEDS: Pantoprazole 40 MG Vial IVPUSH SCH (08:54)
[2017-11-08] MEDS: Enoxaparin 40 MG/0.4 ML Syringe SUBCUT SCH (08:56)
[2017-11-09] MEDS: Metoclopramide 10 MG/2 ML SDV IVPUSH SCH ×2 (03:20→13:12)
[2017-11-09] MEDS: Enoxaparin 40 MG/0.4 ML Syringe SUBCUT SCH (09:03)
[2017-11-09] MEDS: Pantoprazole 40 MG Vial IVPUSH SCH (09:03)
--- NOTE | 2017-11-09 09:42 | PCM.SURGPN ---
- General Info Date of Service: 11/09/17 POD#: 4 Functional Status: Reports: Urinating - Review of Systems Pulmonary: Reports: No Symptoms Cardiovascular: Reports: No Symptoms Gastrointestinal: Reports: No Symptoms, Flatus - Patient Data Vitals - Most Recent: Last Vital Signs Temp 36.8 C 11/09/17 04:00 Pulse 73 11/09/17 04:00 Resp 16 11/09/17 04:00 BP 150/90 H 11/09/17 04:00 Pulse Ox 97 11/09/17 04:00 Weight - Most Recent: 72.575 kg I&O - Last 24 Hours: Intake & Output 11/08/17 11/09/17 11/09/17 22:59 06:59 14:59 Intake Total 1236 584 Output Total 1350 900 Balance -114 -316 Med Orders - Current: Current Medications Enoxaparin Sodium (Lovenox) 40 mg SUBCUT DAILY [facility] Last Admin: 11/09/17 09:03 Dose: 40 mg Hydromorphone HCl (Dilaudid) 1 mg IVPUSH Q2H PRN PRN Reason: Pain (moderate 4-6) Potassium Chloride/Dextrose/Sod Cl (D5 1/2 Ns W/ 20 Meq/L Kcl) 1,000 mls @ 75 mls/hr IV Q8H [facility] Last Admin: 11/08/17 21:53 Dose: 125 mls/hr Ketorolac Tromethamine (Toradol) 30 mg IVPUSH Q6H PRN PRN Reason: Pain Stop: 11/12/17 09:09 Last Admin: 11/08/17 15:37 Dose: 30 mg Metoclopramide HCl (Reglan) 10 mg IVPUSH Q8H [facility] Last Admin: 11/09/17 03:20 Dose: 10 mg Ondansetron HCl (Zofran) 4 mg IVPUSH Q6H PRN PRN Reason: Nausea/Vomiting Pantoprazole Sodium (Protonix Iv) 40 mg IVPUSH DAILY [facility] Last Admin: 11/09/17 09:03 Dose: 40 mg Sodium Chloride (Saline Flush) 10 ml FLUSH ASDIRECTED PRN PRN Reason: Keep Vein Open Last Admin: 11/07/17 05:22 Dose: 10 ml Discontinued Medications Bisacodyl (Dulcolax) 10 mg PO ONETIME ONE Stop: 11/07/17 09:06 Last Admin: 11/07/17 09:47 Dose: 10 mg Bupivacaine HCl (Marcaine 0.5%) 10 ml INJECT .STK-MED ONE Stop: 11/05/17 10:34 Last Admin: 11/05/17 10:33 Dose: 10 ml Cefazolin Sodium (Ancef) 1 gm IV ONETIME ONE Stop: 11/05/17 09:31 Last Admin: 11/05/17 09:50 Dose: 1 gm Enoxaparin Sodium (Lovenox) 40 mg SUBCUT DAILY [facility] Last Admin: 11/07/17 10:27 Dose: 40 mg Hydromorphone HCl (Dilaudid) 1 mg IVPUSH Q2H PRN PRN Reason: Pain (moderate 4-6) Last Admin: 11/06/17 09:14 Dose: 1 mg Lactated Ringer's (Ringers, Lactated) 1,000 mls @ 125 mls/hr IV ASDIRECTED [facility] Last Admin: 11/06/17 04:20 Dose: 125 mls/hr Acetaminophen 1,000 mg/ Premix 100 mls @ 400 mls/hr IV Q6H [facility] Stop: 11/06/17 11:14 Last Admin: 11/06/17 11:40 Dose: 400 mls/hr Ketorolac Tromethamine (Toradol) 30 mg IVPUSH Q6H PRN PRN Reason: Pain Stop: 11/12/17 09:09 Last Admin: 11/07/17 17:01 Dose: 30 mg Ketorolac Tromethamine (Toradol) Confirm Administered Dose 30 mg .ROUTE .STK- MED ONE Stop: 11/07/17 16:38 Last Admin: 11/07/17 18:11 Dose: Not Given Lidocaine/Epinephrine (Xylocaine 1% With Epinephrine 1:100,000) 10 ml INJECT .STK-MED ONE Stop: 11/05/17 10:34 Last Admin: 11/05/17 10:33 Dose: 10 ml Metoclopramide HCl (Reglan) 5 mg IVPUSH Q8H [facility] Last Admin: 11/07/17 05:21 Dose: 5 mg Metoclopramide HCl (Reglan) 10 mg IVPUSH Q8H [facility] Last Admin: 11/07/17 10:17 Dose: 10 mg Ondansetron HCl (Zofran) 4 mg IVPUSH Q6H PRN PRN Reason: Nausea/Vomiting Last Admin: 11/05/17 17:26 Dose: 4 mg Pantoprazole Sodium (Protonix Iv) 40 mg IVPUSH DAILY [facility] Last Admin: 11/07/17 09:51 Dose: 40 mg Tramadol HCl (Ultram) 100 mg PO Q6H PRN PRN Reason: Pain Last Admin: 11/06/17 13:51 Dose: 100 mg Tramadol HCl (Ultram) 100 mg PO Q4H PRN PRN Reason: Pain Last Admin: 11/07/17 03:40 Dose: 100 mg - Exam Wound/Incisions: Healing Well General: Alert, Oriented, No Acute Distress Lungs: Clear to Auscultation, Normal Respiratory Effort Cardiovascular: Regular Rate, Regular Rhythm GI/Abdominal Exam: Normal Bowel Sounds, Soft, Non-Tender - Problem List & Annotations (1) Paraesophageal hernia SNOMED Code(s): 7053306 Code(s): K44.9 - DIAPHRAGMATIC HERNIA WITHOUT OBSTRUCTION OR GANGRENE Status: Acute Current Visit: No - Problem List Review Problem List Initiated/Reviewed/Updated: Yes - My Orders Last 24 Hours: Active Orders 24 hr Category Date Time Status Clear Liquid Diet [DIET] Diet 11/09/17 Lunch Ordered Enoxaparin [Lovenox] Med 11/08/17 09:00 Active 40 mg SUBCUT DAILY Pantoprazole [ProTONIX IV] Med 11/08/17 09:00 Active 40 mg IVPUSH DAILY Convert IV to Saline Lock [OM.PC] Routine Oth 11/09/17 09:41 Ordered NG [Nasogastric Orogastric Tube Removal] [OM.PC] Oth 11/08/17 16:52 Ordered Routine Medication Orders Enoxaparin Sodium (Lovenox) 40 mg SUBCUT DAILY [facility] Last Admin: 11/09/17 09:03 Dose: 40 mg Admin: 11/08/17 08:56 Dose: 40 mg Hydromorphone HCl (Dilaudid) 1 mg IVPUSH Q2H PRN PRN Reason: Pain (moderate 4-6) Potassium Chloride/Dextrose/Sod Cl (D5 1/2 Ns W/ 20 Meq/L Kcl) 1,000 mls @ 75 mls/hr IV Q8H [facility] Last Admin: 11/08/17 21:53 Dose: 125 mls/hr Infusion: 11/08/17 16:31 Dose: 125 mls/hr Admin: 11/08/17 08:31 Dose: 125 mls/hr Infusion: 11/08/17 03:07 Dose: 125 mls/hr Admin: 11/07/17 19:07 Dose: 125 mls/hr Infusion: 11/07/17 17:46 Dose: 125 mls/hr Admin: 11/07/17 09:46 Dose: 125 mls/hr Ketorolac Tromethamine (Toradol) 30 mg IVPUSH Q6H PRN PRN Reason: Pain Stop: 11/12/17 09:09 Last Admin: 11/08/17 15:37 Dose: 30 mg Admin: 11/08/17 08:52 Dose: 30 mg Admin: 11/08/17 00:33 Dose: 30 mg Metoclopramide HCl (Reglan) 10 mg IVPUSH Q8H [facility] Last Admin: 11/09/17 03:20 Dose: 10 mg Admin: 11/08/17 19:00 Dose: 10 mg Admin: 11/08/17 10:52 Dose: 10 mg Admin: 11/08/17 03:50 Dose: 10 mg Admin: 11/07/17 19:07 Dose: 10 mg Ondansetron HCl (Zofran) 4 mg IVPUSH Q6H PRN PRN Reason: Nausea/Vomiting Pantoprazole Sodium (Protonix Iv) 40 mg IVPUSH DAILY [facility] Last Admin: 11/09/17 09:03 Dose: 40 mg Admin: 11/08/17 08:54 Dose: 40 mg Sodium Chloride (Saline Flush) 10 ml FLUSH ASDIRECTED PRN PRN Reason: Keep Vein Open Last Admin: 11/07/17 05:22 Dose: 10 ml Admin: 11/07/17 00:03 Dose: 10 ml Admin: 11/06/17 13:52 Dose: 10 ml - Assessment Assessment (Free Text/Narrative):: doing well - Plan Plan (Free Text/Narrative):: saline lock iv advance diet
[2017-11-09] MEDS ORDERED: Bisacodyl 10 MG Supp RECTAL ONE (09:59)
[2017-11-09] MEDS: Sodium Chloride 0.9% 10 ML Syringe FLUSH PRN (13:12)
--- NOTE | 2017-11-09 14:52 | PCM.DCSUM1 ---
Discharge Summary - Hospital Course Free Text/Narrative:: Pt admitted and underwent a lap paraesophageal hernia repair with mesh and Dami fundoplication. Post op course was notable for a some urinary retention requiring a coulter. He also had a some abd distention when his diet was started. This was treated with NGT decompression as well as reglan. Did have resolution of his distention and return of flatus. Clear liquid diet was started and advanced to full liquid. Due to family issues is being discharged. - Discharge Data Discharge Date: 11/09/17 Discharge Disposition: Home, Self-Care 01 Condition: Good - Discharge Diagnosis/Problem(s) (1) Paraesophageal hernia SNOMED Code(s): 3609840 ICD Code: K44.9 - DIAPHRAGMATIC HERNIA WITHOUT OBSTRUCTION OR GANGRENE Status: Acute Current Visit: No - Patient Summary/Data Operative Procedure(s) Performed: lap paraesophageal hernia repair with mesh. Greg fundoplication Consults: Consultations 11/05/17 13:18 Respiratory Care Assess and Treatment [CONS] Routine Comment: Physician Instructions: Reason for Consult: IS - Patient Instructions Diet: Full Liquid Diet Diet, Other: advance to soft diet as tolerated Activity: No Strenuous Activities, Rest and Relax Today Driving: Do Not Drive (for 7d ays ) Showering/Bathing: May Shower Notify Provider of: Fever, Increased Pain, Swelling and Redness, Nausea and/or Vomiting - Discharge Plan Prescriptions/Med Rec: Acetaminophen/traMADol [Ultracet] 1 - 2 tab PO Q6H PRN #30 tab PRN Reason: Pain Metoclopramide HCl [Reglan] 10 mg PO ACBREAKFASTANDBED #20 tablet Home Medications: Home Meds Omeprazole 40 mg PO DAILY 10/10/17 [History] Sildenafil [Viagra] 100 mg PO BEDTIME PRN 10/10/17 [History] Acetaminophen/traMADol [Ultracet] 1 - 2 tab PO Q6H PRN #30 tab 11/09/17 [Rx] Metoclopramide HCl [Reglan] 10 mg PO ACBREAKFASTANDBED #20 tablet 11/09/17 [Rx] Referrals: Adolfo Medina MD [Physician] - 11/13/17 (for soha ) - Discharge Summary/Plan Comment DC Time >30 min.: No - Patient Data Vitals - Most Recent: Last Vital Signs Temp 37.1 C 11/09/17 12:00 Pulse 75 11/09/17 12:00 Resp 15 11/09/17 12:00 BP 122/83 11/09/17 12:00 Pulse Ox 95 11/09/17 12:00 Weight - Most Recent: 72.575 kg I&O - Last 24 hours: Intake & Output 11/08/17 11/09/17 11/09/17 22:59 06:59 14:59 Intake Total 1236 584 330 Output Total 1350 900 400 Balance -114 -316 -70 Med Orders - Current: Current Medications Enoxaparin Sodium (Lovenox) 40 mg SUBCUT DAILY [facility] Last Admin: 11/09/17 09:03 Dose: 40 mg Hydromorphone HCl (Dilaudid) 1 mg IVPUSH Q2H PRN PRN Reason: Pain (moderate 4-6) Potassium Chloride/Dextrose/Sod Cl (D5 1/2 Ns W/ 20 Meq/L Kcl) 1,000 mls @ 75 mls/hr IV Q8H [facility] Last Admin: 11/08/17 21:53 Dose: 125 mls/hr Ketorolac Tromethamine (Toradol) 30 mg IVPUSH Q6H PRN PRN Reason: Pain Stop: 11/12/17 09:09 Last Admin: 11/08/17 15:37 Dose: 30 mg Metoclopramide HCl (Reglan) 10 mg IVPUSH Q8H [facility] Last Admin: 11/09/17 13:12 Dose: 10 mg Ondansetron HCl (Zofran) 4 mg IVPUSH Q6H PRN PRN Reason: Nausea/Vomiting Pantoprazole Sodium (Protonix Iv) 40 mg IVPUSH DAILY [facility] Last Admin: 11/09/17 09:03 Dose: 40 mg Sodium Chloride (Saline Flush) 10 ml FLUSH ASDIRECTED PRN PRN Reason: Keep Vein Open Last Admin: 11/09/17 13:12 Dose: 10 ml Discontinued Medications Bisacodyl (Dulcolax) 10 mg PO ONETIME ONE Stop: 11/07/17 09:06 Last Admin: 11/07/17 09:47 Dose: 10 mg Bisacodyl (Dulcolax) 10 mg RECTAL ONETIME ONE Stop: 11/09/17 10:00 Last Admin: 11/09/17 10:14 Dose: 10 mg Bupivacaine HCl (Marcaine 0.5%) 10 ml INJECT .STK-MED ONE Stop: 11/05/17 10:34 Last Admin: 11/05/17 10:33 Dose: 10 ml Cefazolin Sodium (Ancef) 1 gm IV ONETIME ONE Stop: 11/05/17 09:31 Last Admin: 11/05/17 09:50 Dose: 1 gm Enoxaparin Sodium (Lovenox) 40 mg SUBCUT DAILY [facility] Last Admin: 11/07/17 10:27 Dose: 40 mg Hydromorphone HCl (Dilaudid) 1 mg IVPUSH Q2H PRN PRN Reason: Pain (moderate 4-6) Last Admin: 11/06/17 09:14 Dose: 1 mg Lactated Ringer's (Ringers, Lactated) 1,000 mls @ 125 mls/hr IV ASDIRECTED [facility] Last Admin: 11/06/17 04:20 Dose: 125 mls/hr Acetaminophen 1,000 mg/ Premix 100 mls @ 400 mls/hr IV Q6H [facility] Stop: 11/06/17 11:14 Last Admin: 11/06/17 11:40 Dose: 400 mls/hr Ketorolac Tromethamine (Toradol) 30 mg IVPUSH Q6H PRN PRN Reason: Pain Stop: 11/12/17 09:09 Last Admin: 11/07/17 17:01 Dose: 30 mg Ketorolac Tromethamine (Toradol) Confirm Administered Dose 30 mg .ROUTE .STK- MED ONE Stop: 11/07/17 16:38 Last Admin: 11/07/17 18:11 Dose: Not Given Lidocaine/Epinephrine (Xylocaine 1% With Epinephrine 1:100,000) 10 ml INJECT .STK-MED ONE Stop: 11/05/17 10:34 Last Admin: 11/05/17 10:33 Dose: 10 ml Metoclopramide HCl (Reglan) 5 mg IVPUSH Q8H [facility] Last Admin: 11/07/17 05:21 Dose: 5 mg Metoclopramide HCl (Reglan) 10 mg IVPUSH Q8H [facility] Last Admin: 11/07/17 10:17 Dose: 10 mg Ondansetron HCl (Zofran) 4 mg IVPUSH Q6H PRN PRN Reason: Nausea/Vomiting Last Admin: 11/05/17 17:26 Dose: 4 mg Pantoprazole Sodium (Protonix Iv) 40 mg IVPUSH DAILY [facility] Last Admin: 11/07/17 09:51 Dose: 40 mg Tramadol HCl (Ultram) 100 mg PO Q6H PRN PRN Reason: Pain Last Admin: 11/06/17 13:51 Dose: 100 mg Tramadol HCl (Ultram) 100 mg PO Q4H PRN PRN Reason: Pain Last Admin: 11/07/17 03:40 Dose: 100 mg
== END 2017-11-09 15:25 | disposition home or self-care (01) | DRG 220 ==
LOC: FB.SDS 08:13 → FB.MS 13:51 → FB.SDS 11-07 09:06 → FB.MS 11-07 09:06
PROVIDERS: ADMIT Surgery; ATTEND Surgery
PROC: 0DV44ZZ Restriction of Esophagogastric Junction, Percutaneous Endoscopic Approach (ICD-10-PCS; principal; 2017-11-05)
PROC: 0BUT4JZ Supplement Diaphragm with Synthetic Substitute, Percutaneous Endoscopic Approach (ICD-10-PCS; 2017-11-05)
DX: K44.9 Diaphragmatic hernia without obstruction or gangrene (principal); R68.81 Early satiety; K21.9 Gastro-esophageal reflux disease without esophagitis; R33.9 Retention of urine, unspecified; R14.0 Abdominal distension (gaseous)
CPT/HCPCS: 36415; 51701; 51702; 80048; 85025; 88302; 94150; A9270-GY; C1781; C9113; J0131; J0330; J0690; J1100; J1170; J1650; J1885; J2405; J2704; J2710; J2765; J3010; J3480; J7040; J7050; J7120

== ENCOUNTER 2019-07-26 15:50 | Emergency (ER) | payer BC ==
--- NOTE | 2019-07-26 16:34 | EDM.PDOC ---
ED HPI GENERAL MEDICAL PROBLEM - General Stated Complaint: LIPS SWOLLEN Time Seen by Provider: 07/26/19 16:23 Source of Information: Reports: Patient History Limitations: Reports: No Limitations - History of Present Illness INITIAL COMMENTS - FREE TEXT/NARRATIVE: 59-year-old male who reports that at about 2:30 PM he was having some pain in his left shoulder after exacerbating some chronic left shoulder pain while at work doing an activity and he took a pain pill that he had from before. He does not know the name of this medication but he does report that he has taken this medication multiple times in the past without any problems. He didn't took a shower and then after the shower at about 2:45 PM is some swelling of his lower lip and the next 30 minutes the swelling progressed to his right lower lip, his left upper lip and then under his tongue. He also felt scratchiness in his throat and in his chest he had some burning sensation and he also had a mild cough. He had some mild nausea associated with this. He has not had any symptoms like this in the past. He is swallowing okay and he also feels that he is breathing okay. The pain in his lip is a pressure type discomfort that he would rate it as a 6/10. There are no other associated signs or symptoms. There are no other modifying factors. Onset: Today (2:45 PM) Duration: Improving (It does seem to be improving now when he arrives to the emergency department.) Location: Reports: Face (Lips and tongue) Quality: Reports: Burning (And tingling sensation) Severity: Moderate Improves with: Reports: None Worsens with: Reports: None Context: Reports: Other (As above) Associated Symptoms: Reports: Chest Pain (Burning pain), Cough, Nausea/Vomiting (Nausea only) Treatments DIRECTOR BUILDING: Reports: Other (see below) (As above. He took) - Related Data Allergies Allergy/AdvReac Type Severity Reaction Status Date / Time No Known Allergies Allergy Verified 11/05/17 08:32 Home Meds: Home Meds Omeprazole 40 mg PO DAILY 10/10/17 [History] Sildenafil [Viagra] 100 mg PO BEDTIME PRN 10/10/17 [History] Acetaminophen/traMADol [Ultracet] 1 - 2 tab PO Q6H PRN #30 tab 11/09/17 [Rx] Metoclopramide HCl [Reglan] 10 mg PO ACBREAKFASTANDBED #20 tablet 11/09/17 [Rx] Loratadine [Claritin] 10 mg PO BID #6 tab 07/26/19 [Rx] Ranitidine HCl [Ranitidine] 150 mg PO BID #6 tablet 07/26/19 [Rx] predniSONE 60 mg PO QAM 3 Days #9 tab 07/26/19 [Rx] Past Medical History Gastrointestinal History: Reports: GERD, Irritable Bowel Syndrome, Other (See Below) Other Gastrointestinal History: BENIGN NEOPLASM OF ESOPHAGUS Hematologic History: Reports: Iron Deficiency - Infectious Disease History Infectious Disease History: Reports: Chicken Pox, Measles, Shingles - Past Surgical History HEENT Surgical History: Reports: Adenoidectomy, Tonsillectomy GI Surgical History: Reports: Appendectomy, Colonoscopy, EGD, Hernia Repair/ Other (Surgery for repair of paraesophageal hernia) Social & Family History - Tobacco Use Smoking Status *Q: Never Smoker - Caffeine Use Caffeine Use: Reports: Soda - Alcohol Use Alcohol Use History: Yes Alcohol Use Frequency: Weekly (He states beer only and 1-2 beers 4-5 nights a week.) - Living Situation & Occupation Living situation: Reports: Occupation: Employed (Works as an financial accounting manager.) ED ROS ALLERGIC REACTION - Review of Systems Review Of Systems: See Below Constitutional: Reports: No Symptoms HEENT: Reports: Other (Lip swelling and tongue swelling) Respiratory: Reports: Cough Cardiovascular: Reports: Chest Pain (Chest burning with this episode) GI/Abdominal: Reports: Nausea : Reports: No Symptoms Musculoskeletal: Reports: No Symptoms Skin: Reports: No Symptoms Neurological: Reports: No Symptoms Hematologic/Lymphatic: Reports: No Symptoms Immunologic: Reports: No Symptoms ED EXAM GENERAL NO PERIP PULSE - Physical Exam Exam: See Below Exam Limited By: No Limitations General Appearance: Alert, WD/WN, Mild Distress Eye Exam: Bilateral Eye: EOMI, Normal Inspection, PERRL Ears: Normal External Exam, Hearing Grossly Normal Nose: Normal Inspection, Normal Mucosa, No Blood Throat/Mouth: Normal Voice, No Airway Compromise, Other (Lip swelling. Slight swelling in the sublingual area.) Head: Atraumatic, Normocephalic Neck: Normal Inspection, Supple, Non-Tender, Full Range of Motion, Other (No masses) Respiratory/Chest: No Respiratory Distress, Lungs Clear, Normal Breath Sounds, No Accessory Muscle Use, Chest Non-Tender Cardiovascular: Normal Peripheral Pulses, Regular Rate, Rhythm, No Murmur GI/Abdominal: Normal Bowel Sounds, Soft, Non-Tender, No Mass Back Exam: Normal Inspection, Full Range of Motion Extremities: Normal Inspection, Normal Range of Motion, Non-Tender, No Pedal Edema, Normal Capillary Refill Neurological: Alert, Oriented, CN II-XII Intact, Normal Cognition, No Motor/ Sensory Deficits Psychiatric: Normal Affect Skin Exam: Warm, Dry, Intact, Normal Color, No Rash EKG INTERPRETATION EKG Date: 07/26/19 Time: 16:59 Rhythm: NSR Rate (Beats/Min): 62 [place]: Normal P-Wave: Present QRS: Normal ST-T: Other (There are some nonspecific ST changes.) QT: Normal Comparison: NA - No Prior EKG Course - Orders/Labs/Meds Orders: Active Orders 24 hr Category Date Time Status EKG Documentation Completion [RC] ASDIRECTED Care 07/26/19 16:39 Active Sodium Chloride 0.9% [Normal Saline] 1,000 ml Med 07/26/19 16:45 Active IV ASDIRECTED Sodium Chloride 0.9% [Saline Flush] Med 07/26/19 16:38 Active 10 ml FLUSH ASDIRECTED PRN Peripheral IV Insertion Adult [OM.PC] Routine Oth 07/26/19 16:38 Ordered EKG 12 Lead [EK] Routine Ther 07/26/19 16:38 Ordered Medication Orders Sodium Chloride (Normal Saline) 1,000 mls @ 150 mls/hr IV ASDIRECTED NORA Last Admin: 07/26/19 16:54 Dose: 150 mls/hr Sodium Chloride (Saline Flush) 10 ml FLUSH ASDIRECTED PRN PRN Reason: Keep Vein Open Last Admin: 07/26/19 17:02 Dose: 10 ml Labs: Laboratory Tests 07/26/19 07/26/19 07/26/19 Range/Units 16:45 16:45 16:45 WBC 8.1 (4.5-12.0) X10-3/uL RBC 5.29 (4.30-5.75) x10(6)uL Hgb 15.3 (13.5-17.8) g/dL Hct 45.5 (30.0-51.3) % MCV 85.9 (80-96) fL MCH 28.9 (27.7-33.6) pg MCHC 33.6 (32.2-35.4) g/dL RDW 12.8 (11.5-15.5) % Plt Count 356 (125-369) X10(3)uL MPV 8.3 (7.4-10.4) fL Neut % (Auto) 71.9 (46-82) % Lymph % (Auto) 17.5 (13-37) % Smyth % (Auto) 6.8 (4-12) % Eos % (Auto) 3 (1.0-5.0) % Baso % (Auto) 0 (0-2) % Neut # (Auto) 5.8 (1.6-8.3) # Lymph # (Auto) 1.4 (0.6-5.0) # Smyth # (Auto) 0.6 (0.0-1.3) # Eos # (Auto) 0.3 (0.0-0.8) # Baso # (Auto) 0.0 (0.0-0.2) # Sodium 140 (135-145) mmol/L Potassium 3.9 (3.5-5.3) mmol/L Chloride 106 (100-110) mmol/L Carbon Dioxide 24 (21-32) mmol/L BUN 28 H D (7-18) mg/dL Creatinine 1.2 (0.70-1.30) mg/dL Est Cr Clr Drug Dosing TNP Estimated GFR (MDRD) > 60 (>60) BUN/Creatinine Ratio 23.3 H (9-20) Glucose 91 (80-116) mg/dL Calcium 8.6 (8.6-10.2) mg/dL Magnesium 2.2 (1.8-2.5) mg/dL Total Bilirubin 0.3 (0.1-1.3) mg/dL AST 21 (5-25) IU/L ALT 21 (12-36) U/L Alkaline Phosphatase 99 (56-112) IU/L Troponin I < 0.017 L (<0.017-0.056) ng/mL Total Protein 6.8 (6.0-8.0) g/dL Albumin 3.5 (3.5-5.2) g/dL Globulin 3.3 g/dL Albumin/Globulin Ratio 1.1 Meds: Medications Generic Name Dose Route Start Last Admin Trade Name Alisson PRN Reason Stop Dose Admin Sodium Chloride 1,000 mls @ 150 mls/hr 07/26/19 16:45 07/26/19 16:54 Normal Saline IV 150 mls/hr ASDIRECTED NORA Administration Sodium Chloride 10 ml 07/26/19 16:38 07/26/19 17:02 Saline Flush FLUSH 10 ml ASDIRECTED PRN Administration Keep Vein Open Discontinued Medications Generic Name Dose Route Start Last Admin Trade Name Alisson PRN Reason Stop Dose Admin Diphenhydramine HCl 50 mg 07/26/19 16:39 07/26/19 16:53 Benadryl IVPUSH 07/26/19 16:40 50 mg ONETIME ONE Administration Famotidine 20 mg/ Premix 50 mls @ 200 mls/hr 07/26/19 16:39 07/26/19 16:55 IV 07/26/19 16:40 200 mls/hr ONETIME ONE Administration Methylprednisolone Sodium Succinate 125 mg 07/26/19 16:39 07/26/19 16:53 Solu-Medrol IVPUSH 07/26/19 16:40 125 mg ONETIME ONE Administration - Re-Assessments/Exams Free Text/Narrative Re-Assessment/Exam: 07/26/19 17:50: Patient feels improved. The swelling in his lips and under his tongue has markedly decreased. He has no more cough. He has no more burning sensation in his central chest with swallowing. He is breathing normally. He is vitally stable. An EKG was essentially normal. His blood tests are all reassuring. He appears to have had angioedema to possibly the medication that he took this afternoon for pain for shoulder. I think he will be stable for discharge and I have advised him to not take anymore of that pain medication. I will discharge the patient on Claritin 10 mg by mouth twice daily for the next 2 days, ranitidine 150 mg by mouth twice daily for the next few days and prednisone 60 mg daily for the next 3 days. He is to increase his fluid intake. Precautions and reasons to return to the emergency department were discussed with the patient prior to his discharge. I have given him off work until 2018. Departure - Departure Time of Disposition: 18:15 Disposition: Home, Self-Care 01 Condition: Good (Improved) Clinical Impression: Allergic angioedema Qualifiers: Encounter type: initial encounter Qualified Code(s): T78.3XXA - Angioneurotic edema, initial encounter - Discharge Information Prescriptions: Loratadine [Claritin] 10 mg PO BID #6 tab predniSONE 60 mg PO QAM 3 Days #9 tab Ranitidine HCl [Ranitidine] 150 mg PO BID #6 tablet Instructions: Angioedema, [id number] Referrals: PCP,None [Primary Care Provider] - Forms: ED Return to Work/School Form Additional Instructions: Your blood tests and EKG were reassuring. The swelling in your lips and tongue and the symptoms of cough and discussed discomfort appear to be due to an allergic reaction. It is likely that the patient that you took for pain is the cause of this allergic reaction. I would not know this for sure but I would definitely recommend that you not take that medication again. You should rest. You should drink plenty of fluids. Medication as prescribed (Claritin, ranitidine, prednisone). No work until 07/29/2019. Back to the emergency department for trouble swallowing, trouble breathing, chest pain or any other concerning sign or symptom. Sepsis Event Note - Focused Exam Date Exam was Performed: 07/26/19 Time Exam was Performed: 18:21 - My Orders Last 24 Hours: My Active Orders 07/26/19 16:38 Sodium Chloride 0.9% [Saline Flush] 10 ml FLUSH ASDIRECTED PRN Peripheral IV Insertion Adult [OM.PC] Routine EKG 12 Lead [EK] Routine 07/26/19 16:39 EKG Documentation Completion [RC] ASDIRECTED 07/26/19 16:45 Sodium Chloride 0.9% [Normal Saline] 1,000 ml IV ASDIRECTED - Assessment/Plan Last 24 Hours: My Active Orders 07/26/19 16:38 Sodium Chloride 0.9% [Saline Flush] 10 ml FLUSH ASDIRECTED PRN Peripheral IV Insertion Adult [OM.PC] Routine EKG 12 Lead [EK] Routine 07/26/19 16:39 EKG Documentation Completion [RC] ASDIRECTED 07/26/19 16:45 Sodium Chloride 0.9% [Normal Saline] 1,000 ml IV ASDIRECTED
[2019-07-26] MEDS ORDERED: Sodium Chloride 0.9% 10 ML Syringe FLUSH PRN (16:38)
[2019-07-26] MEDS ORDERED: diphenhydrAMINE 50 MG/ML SDV IVPUSH ONE (16:39)
[2019-07-26] MEDS ORDERED: methylPREDNISolone Sodium Succinate 125 MG/2 ML SDV IVPUSH ONE (16:39)
[2019-07-26] MEDS ORDERED: Famotidine/Normal Saline 20 MG in Premix Bag 1 BAG IV ONE (16:39)
[2019-07-26] MEDS ORDERED: Sodium Chloride 0.9% 1,000 ML IV SCH (16:45)
== END 2019-07-26 18:45 | disposition home or self-care (01) ==
LOC: FB.ED 15:50
DX: T78.3XXA Angioneurotic edema, initial encounter (principal); K21.9 Gastro-esophageal reflux disease without esophagitis; Z79.899 Other long term (current) drug therapy
CPT/HCPCS: 36415; 80053; 83735; 84484; 85025; 93005; 96361; 96365; 96375; 99283; J1200; J2930; J7030

== ENCOUNTER → 2023-11-11 | Day surgery (SDC) | payer BC ==
[~2023-11-11] MED LIST changes: +Lactated Ringers 1,000 ML IV PRN; -Lactated Ringers 1,000 ML IV SCH; +Midazolam 1 MG/ML 2 ML SDV IV ONE; -Sodium Chloride 0.9% 10 ML Syringe FLUSH PRN; +Sodium Chloride 0.9% 10 ML Syringe IV ONE; +fentaNYL 100 MCG/2 ML SDV IV ONE
[2023-11-11] MEDS: Sodium Chloride 0.9% 10 ML Syringe FLUSH PRN (08:55)
[2023-11-11] MEDS: acetaZOLAMIDE 500 MG Cap.ER PO ONE (10:16)
== END ==
LOC: FB.SDS 08:14
PROVIDERS: ATTEND Ophthalmology
DX: H26.9 Unspecified cataract (principal); H52.201 Unspecified astigmatism, right eye; F41.1 Generalized anxiety disorder; I10 Essential (primary) hypertension; E78.5 Hyperlipidemia, unspecified; F33.1 Major depressive disorder, recurrent, moderate; I25.10 Atherosclerotic heart disease of native coronary artery without angina pectoris; Z79.899 Other long term (current) drug therapy
CPT/HCPCS: 00142; 66984; A9270; J2250; J3010; J3490; V2632